=== PATIENT | male | born 1995 | race Caucasian/White ===

== ENCOUNTER 2019-10-20 17:59 | Emergency (ER) | payer SELFPAY ==
[~2019-10-20] VITALS: Ht 177.8 cm; Wt 113.6 kg
[2019-10-20] MEDS ORDERED: RX-NAPROXEN (NAPROSYN) 250 MG TAB PPK#4 PO STA (18:23)
[2019-10-20] MEDS ORDERED: NAPR-1071 PO (18:28)
--- NOTE | 2019-10-20 18:28 | ED Lower Extremity ---
General Stated Complaint: R KNEE PAIN X 1 MONTH Source: patient Exam Limitations: no limitations History of Present Illness Date Seen by Provider: Oct 20, 2019 Time Seen by Provider: 18:24 Initial Comments To ER with right knee pain for one month, no antecedent injury. No fever no chills. Pain is worsened by movement sharp in nature and occasionally accomp anied by a popping sensation. States that he is new to the area and as such has not had this evaluated by anyone. Pain is no better or worse today, he is just tired of it. Onset: other Severity: moderate Pain/Injury Location: left knee Method of Injury: unknown Modifying Factors: Worse With Movement Allergies and Home Medications Allergies Coded Allergies: No Known Drug Allergies (Unverified , 10/20/19) Home Medications Naproxen 500 Mg Tablet, 500 MG PO BID Prescribed by: JOSH NEAL on 10/20/19 [id number] Patient Home Medication List Home Medication List Reviewed: Yes Review of Systems Constitutional: see HPI EENTM: see HPI Respiratory: no symptoms reported Cardiovascular: no symptoms reported Genitourinary: no symptoms reported Musculoskeletal: see HPI Skin: no symptoms reported Psychiatric/Neurological: No Symptoms Reported Past Bqzaary-Ylcytl-Wtufga Hx Patient Social History Recent Foreign Travel: No Contact w/Someone Who Travel: No Physical Exam Vital Signs Vital Signs - First Documented 10/20/19 18:20 Temp 37.1 Pulse 96 Resp 17 B/P (MAP) 141/86 (104) Pulse Ox 99 O2 Delivery Room Air Capillary Refill : Height, Weight, BMI Height: '" Weight: lbs. oz. kg; BMI Method: General Appearance: WD/WN, no apparent distress Respiratory: no respiratory distress, no accessory muscle use Hips: bilateral hip non-tender, bilateral hip normal inspection, bilateral hip normal range of motion Legs: bilateral leg non-tender, bilateral leg normal inspection, bilateral leg normal range of motion Knees: left knee non-tender; bilateral knee normal inspection, bilateral knee normal range of motion; right knee other (tender to palpation around the joint line. No palpable effusion.) Ankles: bilateral ankle non-tender, bilateral ankle normal inspection, bilateral ankle normal range of motion Feet: bilateral foot non-tender, bilateral foot normal inspection, bilateral foot normal range of motion Progress/Results/Core Measures Results/Orders My Orders Orders - JOSH NEAL APRN Knee, Right, 3 Views (10/20/19 18:23) Rx-Naproxen (Rx-Naprosyn) (10/20/19 18:23) Vital Signs/I&O 10/20/19 18:20 Temp 37.1 Pulse 96 Resp 17 B/P (MAP) 141/86 (104) Pulse Ox 99 O2 Delivery Room Air Departure Impression Primary Impression: Internal derangement of right knee Disposition: HOME, SELF-CARE Condition: Stable Departure-Patient Inst. Decision time for Depature: 18:26 Referrals: NO,LOCAL PHYSICIAN (PCP/Family) Primary Care Physician Patient Instructions: Internal Derangement of the Knee (DC) Add. Discharge Instructions: 1. Call one of the primary care providers listed tomorrow to make an appointment to be seen. The next step is scheduling an MRI to further evaluate the soft tissue structures of the knee such as the meniscus ligaments. In the meantime, pain medication as directed. 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
--- NOTE | 2019-10-20 18:51 | Diagnostic Imaging Report ---
INDICATION: Knee pain, 1 month. HISTORY: No known trauma. FINDINGS: No fracture, dislocation or opaque loose body. The joint space is maintained. The alignment is normal. There are questionable findings for a joint effusion, suprapatellar, seen in the lateral view. No other potential abnormality. IMPRESSION: Normal appearance of the bones. Questionable findings for a joint effusion. Dictated by: Dictated on workstation # [id number]
[2019-10-20 18:53] VITALS: BP 141/86
== END 2019-10-20 18:53 | disposition home or self-care (01) ==
LOC: ER 18:03
DX: M23.91 Unspecified internal derangement of right knee (principal)
CPT/HCPCS: 73562

== ENCOUNTER → 2019-11-29 | Outpatient (CLI) | payer OTHER ==
[~2019-11-29] MED LIST: NAPR-1071 PO
--- NOTE | 2019-11-29 14:15 | Diagnostic Imaging Report ---
EXAMINATION: Magnetic resonance imaging of the right knee without intravenous contrast DATE: November 29, 2019. COMPARISON: Right knee radiographs October 20, 2019. INDICATION: 24-year-old male, right knee pain for 2 months, no known injury. TECHNIQUE: Multiplanar, multisequence non contrast enhanced MR imaging was accomplished. FINDINGS: MENISCI: The medial meniscus is intact. The lateral meniscus is intact. LIGAMENTS AND TENDONS: The anterior and posterior cruciate ligaments are intact. The medial collateral ligament is intact. The iliotibial band, mid third lateral capsular ligament, fibular collateral ligament, biceps femoris tendon and conjoined tendon are intact. The quadriceps tendon and patella ligament are intact. JOINT: The articular cartilage surfaces are intact. There is no knee joint effusion, prominent synovitis, or intra-articular body. BONE: There is edema-like signal in the anterior and medial aspect of the medial femoral condyle without identified fracture consistent with a bone contusion. The additional bone marrow signal is unremarkable. BURSAE AND SOFT TISSUES: There is a small slitlike Hsu's cyst. IMPRESSION: 1. Bone contusion of the anterior and medial aspect of the medial femoral condyle. No acute fracture. 2. Intact menisci and cruciate ligaments. Additional ligaments and tendons are also intact. 3. Intact articular cartilage. No knee joint effusion. 4. Small slitlike Hsu's cyst. Dictated by: Dictated on workstation # [id number]
== END ==
LOC: RAD 08:53
PROVIDERS: ATTEND Physician Assistant
DX: S70.11XA Contusion of right thigh, initial encounter (principal); M71.21 Synovial cyst of popliteal space [Baker], right knee
CPT/HCPCS: 73721